=== PATIENT | male | born 1955 | race Caucasian/White ===

== ENCOUNTER 2017-01-16 10:21 | Day surgery (SDC) | payer BC ==
[2017-01-16] MEDS ORDERED: EPINEPHRINE IVPB SCH ×5 (10:37)
[2017-01-16] MEDS ORDERED: ENOXAPARIN SODIUM IVPB SCH ×5 (10:37)
[2017-01-16] MEDS ORDERED: [UNRECOGNIZED DRUG - OTHER] IVPB SCH ×5 (10:37)
[2017-01-16] MEDS ORDERED: FLUOROURACIL IVPB SCH ×5 (10:37)
[2017-01-16] MEDS ORDERED: Cyclopentolate 1% Opth Drop 2 ML BOT ONE (10:54)
[2017-01-16] MEDS ORDERED: Phenylephrine HCl 2.5% Ophth Soln 5 ML BOT ONE (10:54)
[2017-01-16] MEDS ORDERED: Midazolam HCl 2 mg/2 ml Vial ONE (13:35)
[2017-01-16] MEDS ORDERED: Diprivan 20 ML ONE (13:35)
[2017-01-16] MEDS ORDERED: Propofol 200 MG/20 ML VIAL ONE (13:43)
--- NOTE | 2017-01-16 16:56 | OP ---
DATE OF PROCEDURE: 01/16/2017. PREOPERATIVE DIAGNOSIS: Rhegmatogenous retinal attachment, right eye. POSTOPERATIVE DIAGNOSIS: Rhegmatogenous retinal attachment, right eye. PROCEDURE: Pars plana vitrectomy and retinal detachment repair, right eye. SURGEON: Miguel Maurice M.D. ANESTHESIA: Local with monitored anesthesia care. COMPLICATIONS: None. PROCEDURE IN DETAIL: The patient was identified in the preoperative holding area. Appropriate info rmed consent for the planned surgical procedure on the right eye had been obtained. The patient was transported to the operative suite where appropriate cardiopulmonary monitoring was established. L ocal anesthesia was obtained using retrobulbar and modified Van Lint lid block using 50/50 mixture o f 4% lidocaine and 0.75% bupivacaine. The patient was prepped and draped in the usual sterile gaudencio r for ophthalmic surgery. The right eye lid speculum was placed in the right eye. The 25-gauge tro cars were placed in conjunctiva and sclera supratemporally, inferotemporally, and supranasally. Inf usion line was placed inferotemporally. Light pipe and vitreous cutter were inserted into the eye. Core vitrectomy was performed. Retinal tear was noted at the 10:30 o'clock position near the aura. Drain retinotomy was created along the 8 o'clock meridian. Complete air fluid exchange was perfor med with 10 minutes being allowed for fluid to drain posteriorly. A 360 laser was placed using endo laser delivery device. A 28% sulfur hexafluoride gas was infused into the eye. Trocars were remove d. Eye was noted to retain pressure well. Retrobulbar Kenalog and subconjunctival Ancef were place d. Atropine and antibiotic ointment were placed, and the eye was patched and shielded. The patient was taken to the postoperative recovery unit in good condition, suffered no immediate perioperative complications. DISCHARGE INSTRUCTIONS: The patient was instructed to keep patch and shield on, avoid lifting or be nding, and follow up in the morning with Dr. Maurice.
== END 2017-01-16 15:36 | disposition home or self-care (01) ==
LOC: SDC 10:21
PROVIDERS: ATTEND Ophthalmology Retina Specialist
PROC: 08T43ZZ Resection of Right Vitreous, Percutaneous Approach (ICD-10-PCS; principal; 2017-01-16)
DX: H33.001 Unspecified retinal detachment with retinal break, right eye (principal); I10 Essential (primary) hypertension; E66.9 Obesity, unspecified; E78.5 Hyperlipidemia, unspecified; Z79.899 Other long term (current) drug therapy
CPT/HCPCS: 67025; J0171; J1650; J2250; J2704; J9190

== ENCOUNTER 2017-10-02 07:43 | Day surgery (SDC) | payer BC ==
[2017-10-01 14:52] VITALS: BMI 32.5
[~2017-10-02 07:43] MED LIST: Cyclopentolate 1% Opth Drop 2 ML BOT FS SCH; Fluorouracil 100 MG, Enoxaparin Sodium 25 MG, EPINEPHrine 0.3 MG in Ophthalmic Irrigati... IVPB SCH; Phenylephrine 2.5% Ophth Soln 5 ML BOT FS SCH
[2017-10-02] MEDS ORDERED: Cyclopentolate 1% Opth Drop 2 ML BOT ONE (07:59)
[2017-10-02] MEDS ORDERED: Phenylephrine 2.5% Ophth Soln 5 ML BOT ONE (07:59)
[2017-10-02] MEDS ORDERED: PROPOFOL 20 ML ONE (09:10)
[2017-10-02] MEDS ORDERED: Midazolam HCl 2 mg/2 ml Vial ONE (09:10)
[2017-10-02] MEDS ORDERED: Lidocaine 2% 10 ML INJ ONE (09:10)
[2017-10-02] MEDS ORDERED: Fentanyl 100 MCG/2 ML VIAL ONE (09:10)
--- NOTE | 2017-10-02 12:17 | OP ---
DATE OF PROCEDURE: 10/02/2017 PREOPERATIVE DIAGNOSES: Rhegmatogenous retinal detachment, giant retinal tear left eye. POSTOPERATIVE DIAGNOSES: Rhegmatogenous retinal detachment, giant retinal tear left eye. PROCEDURE: Pars plana vitrectomy and complex retinal detachment repair of the left eye. SURGEON: Dr. Miguel Maurice ANESTHESIA: Local with monitored anesthesia care. PROCEDURE IN DETAIL: The patient was identified in the preoperative holding area. Appropriate infor med consent for the planned surgical procedure on the left eye had been obtained. The patient was tr ansported to the operative suite. Appropriate cardiopulmonary monitoring established. Local anesthe antony was obtained using retrobulbar and modified Van Lint lid block using 50/50 mixture of 4% lidocain e, 0.75% bupivacaine. The patient was prepped and draped in the usual sterile manner for ophthalmic surgery on the left eye. Lid speculum was placed in the left eye. The 25-gauge trocars were placed in conjunctiva and sclera supratemporally supra and inferotemporally. Light pipe was inserted infero temporally. Light pipe and vitreous cutter were inserted into the eye. Core vitrectomy was performe d. Tear was noted temporally with the flap and subretinal fluid extending to the mid periphery. Ext ensive vitreous base dissection was performed using the vitrector. Perfluoroctane was infused into t he eye, flattening the retina and 360 laser was placed using endolaser delivery device. Posterior dr ovalle retinotomy was created at the edge of the subretinal fluid. Complete air fluid exchange was perf ormed with 10 minutes being allowed for fluid to drain posteriorly with extensive attention turned to removing fluid underneath the retina temporally. Silicone oil was infused into the eye. Trocars we re removed and sclerotomy was sutured closed. Retrobulbar Kenalog and subconjunctival Ancef were bekah rajesh. Antibiotic ointment was placed in the eye was patched and shielded. The patient was advised to position right side down and follow up in the morning with Dr. Maurice.
[2017-10-02] MEDS ORDERED: PROPOFOL 200 MG/20 ML VIAL ONE (13:55)
[2017-10-02] MEDS ORDERED: Lidocaine 1% PF 5 ML VIAL ONE (13:55)
== END 2017-10-02 11:30 | disposition home or self-care (01) ==
LOC: SDC 07:43
PROVIDERS: ATTEND Ophthalmology Retina Specialist
PROC: 08T53ZZ Resection of Left Vitreous, Percutaneous Approach (ICD-10-PCS; principal; 2017-10-02)
PROC: 08QF3ZZ Repair Left Retina, Percutaneous Approach (ICD-10-PCS; principal; 2017-10-02)
DX: H33.032 Retinal detachment with giant retinal tear, left eye (principal); Z98.890 Other specified postprocedural states
CPT/HCPCS: 67025; C1814; J0171; J1650; J2001; J2250; J2704; J3010; J9190

== ENCOUNTER 2017-12-25 06:14 | Day surgery (SDC) | payer BC ==
[2017-12-24 14:09] VITALS: BMI 32.3
[~2017-12-25 06:14] MED LIST changes: +Fluorouracil 100 MG, EPINEPHrine 0.3 MG in Ophthalmic Irrigation Solution 500 ML FS SCH; -Fluorouracil 100 MG, Enoxaparin Sodium 25 MG, EPINEPHrine 0.3 MG in Ophthalmic Irrigati... IVPB SCH
[2017-12-25] MEDS ORDERED: Midazolam HCl 2 mg/2 ml Vial ONE (06:20)
[2017-12-25] MEDS ORDERED: Fentanyl 100 MCG/2 ML VIAL ONE (06:20)
[2017-12-25] MEDS ORDERED: Phenylephrine 2.5% Ophth Soln 5 ML BOT ONE (06:22)
[2017-12-25] MEDS ORDERED: Cyclopentolate 1% Opth Drop 2 ML BOT ONE (06:22)
--- NOTE | 2017-12-25 10:04 | OP ---
DATE OF PROCEDURE: 12/25/2017 PREOPERATIVE DIAGNOSIS: Vitreous opacification, left eye. POSTOPERATIVE DIAGNOSIS: Vitreous opacification, left eye. PROCEDURE: Pars plana vitrectomy and membrane peel, left eye. SURGEON: Dr. Miguel Maurice ANESTHESIA: Local with monitored anesthesia care. COMPLICATIONS: None. PROCEDURE IN DETAIL: The patient was identified in the preoperative holding area. Appropriate infor med consent for the planned surgical procedure on the left eye had been obtained. The patient was tr ansported to the operative suite where appropriate cardiopulmonary monitoring established. Local ane sthesia obtained using retrobulbar and modified Van Lint lid block using 50/50 mixture of 4% lidocain e, 0.75% bupivacaine. The patient was prepped and draped in the usual sterile manner for ophthalmic surgery on the left eye. Lid speculum was placed in the left eye. The 25-gauge trocars were placed in conjunctiva and sclera supratemporally, inferotemporally, inferotemporally, and supranasally. Inf usion line was placed inferotemporally. Light pipe a vitreous cutter were inserted into the eye. Th e viscous fluid removal device was inserted superior temporally and silicone oil was removed from the vitreous cavity. Silicone was removed and the retina was noted to be attached, sclerotomies were valiente tured closed with 7-0 Vicryl suture and 6-0 plain gut suture. Retrobulbar Kenalog and subconjunctiva l Ancef were placed. Atropine and antibiotic ointment were placed, and the eye was patched and shiel ded. The patient was taken to the postoperative recovery unit in good condition having suffered no i mmediate perioperative complications. DISCHARGE INSTRUCTIONS: The patient was instructed to keep patch and shield on, avoid lifting or dionne ding, and follow up in the morning with Dr. Maurice.
[2017-12-25] MEDS ORDERED: Lidocaine 4% PF 5 ML AMP ONE (13:04)
[2017-12-25] MEDS ORDERED: Bupivacaine 0.75% 10 ML AMP ONE (13:04)
[2017-12-25] MEDS ORDERED: CEFAZOLIN 1 GM VIAL ONE (13:04)
[2017-12-25] MEDS ORDERED: Triamcinolone 40 MG/ML VIAL ONE (13:04)
[2017-12-25] MEDS ORDERED: Lidocaine 1% PF 5 ML VIAL ONE (13:04)
[2017-12-25] MEDS ORDERED: PROPOFOL 200 MG/20 ML VIAL ONE (13:04)
[2017-12-25] MEDS ORDERED: Maxitrol 0.1% Opth Oint 3.5 GM TUBE ONE (13:04)
== END 2017-12-25 08:29 | disposition home or self-care (01) ==
LOC: SDC 06:14
PROVIDERS: ATTEND Ophthalmology Retina Specialist
PROC: 08T53ZZ Resection of Left Vitreous, Percutaneous Approach (ICD-10-PCS; principal; 2017-12-25)
DX: H43.392 Other vitreous opacities, left eye (principal); Z79.82 Long term (current) use of aspirin; Z79.899 Other long term (current) drug therapy
CPT/HCPCS: J0171; J0690; J2001; J2250; J2704; J3010; J3301; J3490; J9190